=== PATIENT | female | born 1980 | race Caucasian/White ===

== ENCOUNTER → 2018-06-26 | Outpatient (CLI) | payer OTHER ==
[2018-06-26 14:59] LABS: HCT 46.5 % (34.0-46.0); HGB 14.9 gm/dL (11.4-16.0); MCH 31.9 pg (25.0-35.0); MCHC 32.2 g/dL (31.0-37.0); MCV 99.1 fL (80.0-100.0); Mean Platelet Volume 7.4; Platelet Count 232 k/uL (150-450); RBC 4.69 m/uL (3.80-5.40); RDW 12.8 % (11.5-15.5); WBC 9.9 k/uL (3.8-10.6)
[2018-06-26 19:41] LABS: Vitamin D 25 Hydroxy 29.4 ng/mL (30.0-100.0)
[2018-06-26 19:49] LABS: Albumin 4.7 g/dL (3.80-4.90); Albumin/Globulin Ratio 2.47 (1.60-3.17); Anion Gap 11.5 mmol/L (4.00-12.00); Calcium 9.7 mg/dL (8.7-10.3); Carbon Dioxide 25.5 mmol/L (21.6-31.8); Globulin 1.9 g/dL (1.6-3.3); Potassium 4.4 mmol/L (3.5-5.5); Total Bilirubin 0.5 mg/dL (0.2-1.2); Total Protein 6.6 g/dL (6.2-8.2)
[2018-06-26 20:26] LABS: Progesterone 0.8 ng/mL; Thyroid Peroxidase Antibodies <28.0 U/mL (0.0-60.0)
== END | disposition home or self-care (01) ==
LOC: LABWHC1 14:31
PROVIDERS: ATTEND Obstetrics & Gynecology
DX: R53.83 Other fatigue (principal); R63.5 Abnormal weight gain; F32.9 Major depressive disorder, single episode, unspecified; R68.82 Decreased libido; N95.1 Menopausal and female climacteric states
CPT/HCPCS: 36415; 80053; 82306; 82607; 82670; 83001; 84144; 84403; 84439; 84443; 84481; 85027; 86376

== ENCOUNTER → 2018-09-04 | Outpatient (CLI) | payer OTHER ==
[2018-09-04 19:45] LABS: Progesterone 8.7 ng/mL
== END | disposition home or self-care (01) ==
LOC: LABWHC1 12:19
PROVIDERS: ATTEND Obstetrics & Gynecology
DX: N95.1 Menopausal and female climacteric states (principal); R61 Generalized hyperhidrosis; E34.50 Androgen insensitivity syndrome, unspecified; R53.83 Other fatigue
CPT/HCPCS: 36415; 82670; 83001; 84144; 84403

== ENCOUNTER → 2019-07-01 | Outpatient (CLI) | payer BC ==
[2019-07-01 19:19] LABS: Estradiol 58.6 pg/mL; Follicle Stimulating Hormone 15.2 mIU/mL
== END ==
LOC: LABWHC1 13:47
PROVIDERS: ATTEND Orthopaedic Surgery
DX: E55.9 Vitamin D deficiency, unspecified (principal); M25.522 Pain in left elbow; N95.1 Menopausal and female climacteric states; E34.50 Androgen insensitivity syndrome, unspecified; R61 Generalized hyperhidrosis; R53.83 Other fatigue
CPT/HCPCS: 36415; 82306; 82670; 83001; 84144; 84403

== ENCOUNTER → 2019-07-23 | Outpatient (CLI) | payer BC ==
--- NOTE | 2019-07-24 11:20 | MM ---
Reason for exam: screening (asymptomatic). Baseline mammogram. History: Reductions of both breasts, 2010. Taking hormonal contraceptives for 1 year beginning at age 38. Taking progesterone for 1 year beginning at age 38. Physical Findings: Nurse Summary: 0.3cm nodule in the left breast at 10 o'clock (nurse TM). MG 3D Screening Mammo W/Cad Bilateral CC and MLO view(s) were taken. The breast tissue is heterogeneously dense. This may lower the sensitivity of mammography. Benign appearing calcifications in the right breast. There are three grouped sub 5mm masses on the central upper right breast at posterior depth and left central middle posterior depth asymmetry on spot views the right abnormality these persist on the left abnormality persists. These results were verbally communicated with the patient and result sheet given to the patient on 07/23/19. ASSESSMENT: Incomplete: need additional imaging evaluation, BI-RAD 0 RECOMMENDATION: Special view mammogram of both breasts.
--- NOTE | 2019-07-24 11:25 | MM ---
Reason for exam: additional evaluation requested from abnormal screening. History: Reductions of both breasts, 2010. Taking hormonal contraceptives for 1 year beginning at age 38. Taking progesterone for 1 year beginning at age 38. Physical Findings: Breast exam preformed at baseline screening. MG 3D Work Up W/Cad SHERRY Bilateral spot compression CC and LM view(s) were taken. Spot compression MLO view(s) were taken of the right breast. The breast tissue is heterogeneously dense. This may lower the sensitivity of mammography. Bilateral findings on screening persist on additional views. Ultrasound will be performed. These results were verbally communicated with the patient and result sheet given to the patient on 07/23/19. ASSESSMENT: Incomplete: need additional imaging evaluation, BI-RAD 0 RECOMMENDATION: Ultrasound of both breasts.
--- NOTE | 2019-07-24 11:32 | USB ---
Reason for exam: additional evaluation requested from abnormal screening. History: Reductions of both breasts, 2010. Taking hormonal contraceptives for 1 year beginning at age 38. Taking progesterone for 1 year beginning at age 38. US Breast Workup Limited SHERRY Right limited breast ultrasound including focal area of concern, retroareolar and axilla demonstrates a 0.6 x 0.7 x 0.6cm oval, complex, cystic lesion at 10 o'clock, a 0.4 x 0.4 x 0.3cm oval, cystic lesion at 11 o'clock, a 0.6 x 0.6 x 0.2cm oval, cystic lesion at 12 o'clock and a 0.7 x 0.8 x 0.5cm node at the axilla. Left limited breast ultrasound including focal area of concern, retroareolar and axilla demonstrates a 0.4 x 0.5 x 0.3cm cystic lesion at 1 o'clock and a 0.6 x 0.7 x 0.3cm cystic lesion at 1 o'clock, a 0.6 x 0.7 x 0.3cm oval, cystic, complex lesion at 10 o'clock and a 1.0 x 1.0 x 0.9cm axilla node. Dense tissue at 1 o'clock correlates with left mammographic finding. These results were verbally communicated with the patient and result sheet given to the patient on 07/23/19. ASSESSMENT: Benign, BI-RAD 2 RECOMMENDATION: Routine screening mammogram of both breasts in 1 year.
== END | disposition home or self-care (01) ==
LOC: RADMAMWWP 12:46
PROVIDERS: ATTEND Obstetrics & Gynecology
DX: Z12.31 Encounter for screening mammogram for malignant neoplasm of breast (principal); R92.8 Other abnormal and inconclusive findings on diagnostic imaging of breast
CPT/HCPCS: 77062; 77063; 77066; 77067

== ENCOUNTER → 2020-01-19 | Outpatient (CLI) | payer BC ==
--- NOTE | 2020-01-20 06:27 | US ---
EXAMINATION TYPE: US pelvic complete DATE OF EXAM: 01/19/2020 COMPARISON: NONE CLINICAL HISTORY: R10.2 Pelvic Pain. History of ablation 10 years prior. TECHNIQUE: Transabdominal (TA). Date of LMP: 10 years prior EXAM MEASUREMENTS: Uterus: 9.6 x 3.4 x 3.6 cm Endometrial Stripe: 0.7 cm Right Ovary: 1.7 x 0.9 x 1.1 cm Left Ovary: 1.5 x 1.1 x 1.1 cm 1. Uterus: Anteverted wnl 2. Endometrium: wnl 3. Right Ovary: wnl 4. Left Ovary: wnl 5. Bilateral Adnexa: wnl 6. Posterior cul-de-sac: wnl Anteverted uterus. No free fluid. Symmetric small size ovaries. No adnexal masses. IMPRESSION: Unremarkable transabdominal pelvic ultrasound.
== END | disposition home or self-care (01) ==
LOC: RADUSWWP 15:32
PROVIDERS: ATTEND Nurse Practitioner Family
DX: R10.2 Pelvic and perineal pain (principal)
CPT/HCPCS: 76856

== ENCOUNTER → 2020-05-11 | Outpatient (CLI) | payer BC ==
[2020-05-12 06:13] LABS: Estradiol 70.1 pg/mL
[2020-05-12 06:14] LABS: Follicle Stimulating Hormone 13.3 mIU/mL
== END | disposition home or self-care (01) ==
LOC: LABWHC1 15:39
PROVIDERS: ATTEND Obstetrics & Gynecology
DX: N95.1 Menopausal and female climacteric states (principal)
CPT/HCPCS: 36415; 82670; 83001; 84144; 84403

== ENCOUNTER → 2020-08-17 | Outpatient (CLI) | payer BC ==
--- NOTE | 2020-08-18 08:50 | MM ---
Reason for exam: screening (asymptomatic). Last mammogram was performed 1 year and 1 month ago. History: Reductions of both breasts, 2011. Taking hormonal contraceptives for 1 year beginning at age 38. Taking progesterone for 1 year beginning at age 38. Taking other hormone beginning at age 37. Physical Findings: A clinical breast exam by your physician is recommended on an annual basis and results should be correlated with mammographic findings. MG 3D Screening Mammo W/Cad Bilateral CC and MLO view(s) were taken. Prior study comparison: July 23, 2019, bilateral MG 3d work up w/cad SHERRY. July 23, 2019, bilateral MG 3d screening mammo w/cad. The breast tissue is heterogeneously dense. This may lower the sensitivity of mammography. Focal asymmetry central upper right breast. This finding is changed when compared with previous exams. ASSESSMENT: Incomplete: need additional imaging evaluation, BI-RAD 0 RECOMMENDATION: Special view mammogram of the right breast. If lesion persists on supplemental views, image directed ultrasound is recommended. [facility] will attempt to contact patient to return for supplemental views and ultrasound if indicated.
== END | disposition home or self-care (01) ==
LOC: RADMAMWWP 08:58
PROVIDERS: ATTEND Obstetrics & Gynecology
DX: Z12.31 Encounter for screening mammogram for malignant neoplasm of breast (principal)
CPT/HCPCS: 77063; 77067

== ENCOUNTER → 2020-08-26 | Outpatient (CLI) | payer BC ==
--- NOTE | 2020-08-29 10:41 | MM ---
Reason for exam: additional evaluation requested from abnormal screening. Last mammogram was performed less than 1 month ago. History: Reductions of both breasts, 2010. Took hormonal contraceptives for 12 years beginning at age 13. Taking estrogen for 2 years. Taking progesterone for 2 years beginning at age 38. Taking other hormone beginning at age 37. Physical Findings: Nurse Summary: 0.5cm nodule in the left breast at 10 o'clock (nurse db). MG 3D Work Up W/Cad RT Spot compression CC, spot compression MLO, and LM view(s) were taken of the right breast. Prior study comparison: August 17, 2020, bilateral MG 3d screening mammo w/cad. July 23, 2019, bilateral MG 3d work up w/cad SHERRY. The breast tissue is heterogeneously dense. This may lower the sensitivity of mammography. 1cm focal asymmetry 12 o'clock right breast persists. These results were verbally communicated with the patient and result sheet given to the patient on 08/26/20. ASSESSMENT: Incomplete: need additional imaging evaluation, BI-RAD 0 RECOMMENDATION: Ultrasound of both breasts. (right 11-1 o'clock, left 10 o'clock palpable)
--- NOTE | 2020-08-29 10:43 | USB ---
Reason for exam: additional evaluation requested from abnormal screening. History: Reductions of both breasts, 2010. Took hormonal contraceptives for 12 years beginning at age 13. Taking estrogen for 2 years. Taking progesterone for 2 years beginning at age 38. Taking other hormone beginning at age 37. US Breast Workup Limited SHERRY Right limited breast ultrasound including focal area of concern, retroareolar and axilla demonstrates a 0.7 x 0.6 x 0.7cm mixed lesion at 11 o'clock versus 7 x 6 x 6mm previously, largely unchanged, mammographic correlate, 6 month follow up. Left limited breast ultrasound including focal area of concern, retroareolar and axilla demonstrates a 0.9 x 0.4 x 0.8cm cystic lesion at 10 o'clock, superficial, nurse palpated, unchanged, seen previously, benign. These results were verbally communicated with the patient and result sheet given to the patient on 08/26/20. ASSESSMENT: Probably benign, BI-RAD 3 RECOMMENDATION: Follow-up diagnostic mammogram of the right breast in 6 months.
== END | disposition home or self-care (01) ==
LOC: RADMAMWWP 15:01
PROVIDERS: ATTEND Obstetrics & Gynecology
DX: N60.01 Solitary cyst of right breast (principal); N60.02 Solitary cyst of left breast
CPT/HCPCS: 77061; 77065

== ENCOUNTER → 2021-04-07 | Outpatient (CLI) | payer BC ==
--- NOTE | 2021-04-10 09:48 | MM ---
Reason for exam: follow-up at short interval from prior study. Last mammogram was performed 7 months ago. History: Reductions of both breasts, 2011. Took hormonal contraceptives for 12 years beginning at age 13. Taking estrogen for 2 years. Taking progesterone for 2 years beginning at age 38. Taking other hormone beginning at age 37. Physical Findings: Nurse did not find any significant physical abnormalities on exam. MG 3D Diag Mammo W/Cad RT CC and MLO view(s) were taken of the right breast. Prior study comparison: August 26, 2020, right breast MG 3d work up w/cad RT. August 17, 2020, bilateral MG 3d screening mammo w/cad. There are scattered fibroglandular densities. There is chronic nodularity in the right breast. There is no new dominant lesion. Asymmetric breast tissue right breast centrally upper aspect, stable. These results were verbally communicated with the patient and result sheet given to the patient on 04/07/21. ASSESSMENT: Benign, BI-RAD 2 RECOMMENDATION: Return to routine screening mammogram schedule for both breasts. Back on schedule for August 2021.
== END | disposition home or self-care (01) ==
LOC: RADMAMWWP 14:23
PROVIDERS: ATTEND Obstetrics & Gynecology
DX: R92.8 Other abnormal and inconclusive findings on diagnostic imaging of breast (principal)
CPT/HCPCS: 77061; 77065

== ENCOUNTER 2021-10-21 17:18 | Emergency (ER) | payer BC ==
[2021-10-21 17:35] VITALS: TEMP 98.3
[2021-10-21] MEDS ORDERED: LORazepam 0.5 MG TAB PO STA (18:18)
[2021-10-21 18:35] LABS: Basophils # (A) 0.1 k/uL (0-0.2); Basophils % (A) 1 %; Eosinophils # (A) 0.2 k/uL (0-0.7); Eosinophils % (A) 2 %; HCT 48.2 % (34.0-46.0); HGB 15.4 gm/dL (11.4-16.0); Lymphocytes # (A) 1.5 k/uL (1.0-4.8); Lymphocytes % (A) 17 %; MCH 33.1 pg (25.0-35.0); MCV 103.2 fL (80.0-100.0); Macrocytosis Slight; Monocytes # (A) 0.5 k/uL (0-1.0); Monocytes % (A) 6 %; Neutrophils # (A) 6.7 k/uL (1.3-7.7); Neutrophils % (A) 73 %; Platelet Count 202 k/uL (150-450); RBC 4.67 m/uL (3.80-5.40); WBC 9.2 k/uL (3.8-10.6)
[2021-10-21 18:38] LABS: Appearance,Urine Cloudy (Clear); Bacteria,Urine Rare /hpf; Bilirubin,Urine Negative (Negative); Blood,Urine Negative (Negative); Color,Urine Light Red; Glucose,Urine (UA) Negative (Negative); Hyaline Casts,Urine 1 /lpf (0-2); Ketones,Urine Negative (Negative); Leukocyte Esterase,Urine Negative (Negative); Mucus,Urine Many /hpf; Nitrite,Urine Negative (Negative); PH, Urine 6.5 (5.0-8.0); Protein,Urine Trace (Negative); RBC,Urine 1 /hpf (0-5); Specific Gravity,Urine 1.026 (1.001-1.035); Squamous Epithelial Cell,Urine 7 /hpf (0-4); WBC,Urine 2 /hpf (0-5)
[2021-10-21 18:46] LABS: African American GFR (CKD) >90 (>60 ml/min/1.73 sqM); Anion Gap 9 mmol/L; Blood Urea Nitrogen 13 mg/dL (7-17); Calcium 9.7 mg/dL (8.4-10.2); Carbon Dioxide 25 mmol/L (22-30); Chloride 104 mmol/L (98-107); Glucose 120 mg/dL (74-99); Magnesium 1.8 mg/dL (1.6-2.3); Non-African American GFR(CKD) >90 (>60 ml/min/1.73 sqM); Potassium 3.9 mmol/L (3.5-5.1); Sodium 138 mmol/L (137-145)
--- NOTE | 2021-10-21 18:48 | XR ---
EXAMINATION TYPE: XR chest 1V portable DATE OF EXAM: 10/21/2021 COMPARISON: NONE HISTORY: Nausea. Dizziness TECHNIQUE: Single view FINDINGS: Heart and mediastinum are normal. Lungs are clear. Diaphragm is normal. Bony thorax is inta ct. IMPRESSION: Normal chest.
--- NOTE | 2021-10-21 18:58 | ED ---
General Adult HPI - General Chief complaint: Weakness Stated complaint: Weakness,nausea Time Seen by Provider: 10/21/21 18:09 Source: patient, RN notes reviewed, old records reviewed Mode of arrival: ambulatory Limitations: no limitations - History of Present Illness Initial comments: She is a 41-year-old female with past medical history remarkable for anxiety, hypertension and presents emergency Department complaining of becoming shaky suddenly. Patient was at a movie, seeing top gone with her and near the end of the movie some and began feeling nauseous and began getting cold sweats and shaky. Denied any abdominal pain, chest pain, shortness of breath. States she began seeing "sparkles" in her eyes which has since resolved. States she went outside in the movie theater, and sat down. Most of her symptoms resolved except for the mild shakiness. Presents for further evaluation this time. States that her blood pressure was elevated to 150 systolic. States that when she has experienced this in the past, her blood pressure was well. Is compliant with medications. Denies any abdominal pain, nausea, vomiting. Denies any morris ce of being . Denies any weakness, numbness. Was complaining of mild tremors at this time. Denies any alcohol abuse. Denies any drug use. Denies any fevers, chills, sick contacts.Patient denies any recent stressors. States she does not believe she feels anxious. Is concerned regarding her blood pressure. - Related Data Allergies Allergy/AdvReac Type Severity Reaction Status Date / Time levofloxacin [From Levaquin] AdvReac Unknown Verified 10/21/21 17:35 Review of Systems ROS Statement: Those systems with pertinent positive or pertinent negative responses have been documented in the HPI. Review of Systems: CONST: Denies fever EYES: Denies blurry vision ENT: Denies nasal congestion C/V: Denies Chest pain RESP: Denies shortness of breath GI: Denies abdominal pain : Denies dysuria SKIN: Denies rash. MSK: Denies joint pain. NEURO: Denies headache ROS Other: All systems not noted in ROS Statement are negative. Past Medical History Past Medical History: Hypertension History of Any Multi-Drug Resistant Organisms: None Reported Past Surgical History: Section, Cholecystectomy, Orthopedic Surgery Additional Past Surgical History / Comment(s): ACL knee Past Psychological History: Depression Smoking Status: Current every day smoker Past Alcohol Use History: Daily Past Drug Use History: None Reported General Exam - General Exam Comments Initial Comments: General: Appears in no acute distress. HEAD: Normal with no signs of head trauma. EYES: PERRLA, EOMI, conjunctiva normal, no discharge. ENT: Hearing grossly intact, normal oropharynx. RESPIRATORY: Clear breath sounds bilaterally. No wheezes, rales, or rhonchi. C/V: Regular rate and rhythm. S1 and S2 auscultated, no edema, peripheral pulses 2+ and intact throughout ABD: Abd is soft, nontender, nondistended EXT: Normal range of motion, no obvious deformity SKIN: No rashes or lesions observed on exposed skin. NEURO: Alert and oriented x 4. Cranial nerves II-XII intact. No focal sensory or strength deficits. No tremors present. No tongue fasciculations. GCS of 15. Limitations: no limitations Course Vital Signs 10/21/21 10/21/21 17:32 19:13 Temperature 98.3 F Pulse Rate 95 88 Respiratory 16 18 Rate Blood Pressure 157/105 133/98 O2 Sat by Pulse 96 98 Oximetry Medical Decision Making - Medical Decision Making Based on the patient's presentation and physical exam, her symptoms do seem to represent an anxiety episode, however she has no preemptive stressors or triggers that are readily apparent. I did recommend that we obtain a basic workup to rule out any obvious abnormality to this time. Symptoms are improving at this time. She'll be given a dose of Ativan. She has no obvious findings on exam. Vital signs are within normal limits and stable. She is concerned regarding her blood pressure being 157/105. I stated that she is having no symptoms with this blood pressure, and could be due to stress of the current situation as well. We will monitor while she is here in the department. She was in agreement this plan. I did offer her a small dose of oral Ativan which she accepted. Patient stated that she was feeling nauseous earlier which is since resolved. Declines antimanic medications. EKG showed no signs of acute ischemia. Chest x-ray revealed no acute cardiopulmonary process. Laboratory studies were remarkable for a negative test. The remainder of the labs are unremarkable. Urinalysis appears to be a contaminated catch, however shows no obvious findings. On reevaluation, vital signs remained within normal limits. Repeat blood pressure is 133/98. She is feeling slightly improved, and definitely improved since earlier. I discussed the negative workup with her. I do believe it is safer to be discharged home at this time and she is in agreement this plan. She is concerned with her blood pressure, did recommend that she continue to monitor it. She should take it before and after she takes her home blood pressure medications. I'm not concerned for symptomatic hypertension at this time. She was in agreement with this plan. She has Xanax at home to take as needed for anxiety. She is also on bupropion. I recommend that she can states medi cations. Strict return precautions were discussed. I instructed the patient to follow up with their PCP in the next 3 days. I explained that the patient should return to the emergency department if they experience any worsening symptoms. Strict return precautions were discussed with the patient. The patient expressed understanding of these instructions. I answered all questions that the patient had. The patient was discharged home in good condition with their prescriptions and follow up information. - Lab Data Result diagrams: 10/21/21 18:27 10/21/21 18:27 Lab Results 10/21/21 10/21/21 10/21/21 Range/Units 18:27 18:27 18:27 WBC 9.2 (3.8-10.6) k/uL RBC 4.67 (3.80-5.40) m/uL Hgb 15.4 (11.4-16.0) gm/dL Hct 48.2 H (34.0-46.0) % MCV 103.2 H (80.0-100.0) fL MCH 33.1 (25.0-35.0) pg MCHC 32.0 (31.0-37.0) g/dL RDW 12.0 (11.5-15.5) % Plt Count 202 (150-450) k/uL MPV 8.0 Neutrophils % 73 % Lymphocytes % 17 % Monocytes % 6 % Eosinophils % 2 % Basophils % 1 % Neutrophils # 6.7 (1.3-7.7) k/uL Lymphocytes # 1.5 (1.0-4.8) k/uL Monocytes # 0.5 (0-1.0) k/uL Eosinophils # 0.2 (0-0.7) k/uL Basophils # 0.1 (0-0.2) k/uL Macrocytosis Slight Sodium (137-145) mmol/L Potassium (3.5-5.1) mmol/L Chloride (98-107) mmol/L Carbon Dioxide (22-30) mmol/L Anion Gap mmol/L BUN (7-17) mg/dL Creatinine (0.52-1.04) mg/dL Est GFR (CKD-EPI)AfAm (>60 ml/min/1.73 sqM) Est GFR (CKD-EPI)NonAf (>60 ml/min/1.73 sqM) Glucose (74-99) mg/dL Calcium (8.4-10.2) mg/dL Magnesium (1.6-2.3) mg/dL Urine Color Light Red Urine Appearance Cloudy H (Clear) Urine pH 6.5 (5.0-8.0) Ur Specific [place] 1.026 (1.001-1.035) Urine Protein Trace H (Negative) Urine Glucose (UA) Negative (Negative) Urine Ketones Negative (Negative) Urine Blood Negative (Negative) Urine Nitrite Negative (Negative) Urine Bilirubin Negative (Negative) Urine Urobilinogen 2.0 (<2.0) mg/dL Ur Leukocyte Esterase Negative (Negative) Urine RBC 1 (0-5) /hpf Urine WBC 2 (0-5) /hpf Ur Squamous Epith Cells 7 H (0-4) /hpf Urine Bacteria Rare H (None) /hpf Hyaline Casts 1 (0-2) /lpf Urine Mucus Many H (None) /hpf Urine HCG, Qual Not Detected (Not Detectd) 10/21/21 Range/Units 18:27 WBC (3.8-10.6) k/uL RBC (3.80-5.40) m/uL Hgb (11.4-16.0) gm/dL Hct (34.0-46.0) % MCV (80.0-100.0) fL MCH (25.0-35.0) pg MCHC (31.0-37.0) g/dL RDW (11.5-15.5) % Plt Count (150-450) k/uL MPV Neutrophils % % Lymphocytes % % Monocytes % % Eosinophils % % Basophils % % Neutrophils # (1.3-7.7) k/uL Lymphocytes # (1.0-4.8) k/uL Monocytes # (0-1.0) k/uL Eosinophils # (0-0.7) k/uL Basophils # (0-0.2) k/uL Macrocytosis Sodium 138 (137-145) mmol/L Potassium 3.9 (3.5-5.1) mmol/L Chloride 104 (98-107) mmol/L Carbon Dioxide 25 (22-30) mmol/L Anion Gap 9 mmol/L BUN 13 (7-17) mg/dL Creatinine 0.70 (0.52-1.04) mg/dL Est GFR (CKD-EPI)AfAm >90 (>60 ml/min/1.73 sqM) Est GFR (CKD-EPI)NonAf >90 (>60 ml/min/1.73 sqM) Glucose 120 H (74-99) mg/dL Calcium 9.7 (8.4-10.2) mg/dL Magnesium 1.8 (1.6-2.3) mg/dL Urine Color Urine Appearance (Clear) Urine pH (5.0-8.0) Ur Specific [place] (1.001-1.035) Urine Protein (Negative) Urine Glucose (UA) (Negative) Urine Ketones (Negative) Urine Blood (Negative) Urine Nitrite (Negative) Urine Bilirubin (Negative) Urine Urobilinogen (<2.0) mg/dL Ur Leukocyte Esterase (Negative) Urine RBC (0-5) /hpf Urine WBC (0-5) /hpf Ur Squamous Epith Cells (0-4) /hpf Urine Bacteria (None) /hpf Hyaline Casts (0-2) /lpf Urine Mucus (None) /hpf Urine HCG, Qual (Not Detectd) - EKG Data -: EKG Interpreted by Me EKG Comments: 12-lead Electrocardiogram Interpretation Note EKG was reviewed and interpreted by myself. 12-lead ECG performed at 1738 is interpreted by me as revealing normal sinus rhythm at a rate of 95 beats per minute. [place] is normal. AR interval is 150 ms, QRS durations 101 ms, QTc is 421 ms.. There were no ST or T wave abnormalities to suggest myocardial ischemia or injury. R wave progression across the precordium was satisfactory. By my interpretation this EKG is non-diagnostic for acute ischemia. Disposition Clinical Impression: Nausea Disposition: HOME SELF-CARE Condition: Good Instructions (If sedation given, give patient instructions): Acute Nausea and Vomiting (DC), Anxiety (ED) Is patient prescribed a controlled substance at d/c from ED?: No Referrals: Elen Vu MD [Primary Care Provider] - 1-2 days Time of Disposition: 19:00
[2021-10-21 19:14] VITALS: BP 133/98; PULSE 88; RESP 18
== END 2021-10-21 19:10 | disposition home or self-care (01) ==
LOC: EC 17:18
DX: R11.0 Nausea (principal); R53.1 Weakness; R25.1 Tremor, unspecified; I10 Essential (primary) hypertension; F17.200 Nicotine dependence, unspecified, uncomplicated; Z88.1 Allergy status to other antibiotic agents
CPT/HCPCS: 36415; 71045; 80048; 81001; 81025; 83735; 85025; 93005; 99285

== ENCOUNTER → 2022-03-15 | Outpatient (CLI) | payer BC ==
[2022-03-16 00:15] LABS: Follicle Stimulating Hormone 42.6 mIU/mL
== END | disposition home or self-care (01) ==
LOC: LABWHC1 15:46
PROVIDERS: ATTEND Obstetrics & Gynecology
DX: N95.1 Menopausal and female climacteric states (principal); E34.50 Androgen insensitivity syndrome, unspecified; R53.83 Other fatigue
CPT/HCPCS: 36415; 82672; 83001; 84144; 84403

== ENCOUNTER → 2023-03-29 | Outpatient (CLI) | payer BC ==
--- NOTE | 2023-04-01 08:28 | MM ---
Reason for Exam: Screening (asymptomatic). Last mammogram was performed 1 year(s) and 3 month(s) ago. Patient History: Menarche at age 11. First Full-Term at age 27. Premenopausal. Patient has history of breast feeding. Currently using Estrogen, for 2 years. Currently using Progesterone, beginning at age 38 for 2 years. Hormonal Contraceptives for 12 years from age 13 until age 25. 2011, Bilateral Reduction. Risk Values: Zainab 5 year model risk: 0.8%. NCI Lifetime model risk: 11.9%. Prior Study Comparison: 07/23/2019 Bilateral Screening Mammogram, [facility]. 07/23/2019 Bilateral Diagnostic Mammogram, [facility]. 08/17/2020 Bilateral Screening Mammogram, [facility]. 08/26/2020 Right Diagnostic Mammogram, [facility]. 04/07/2021 Right Diagnostic Mammogram, [facility]. 01/03/2022 Bilateral MG 3D screening mammo w/cad, [facility]. Tissue Density: The breast tissue is heterogeneously dense. This may lower the sensitivity of mammography. Findings: Analyzed By CAD. Increasing microcalcifications in her upper left breast 4 cm from the nipple. Additional views are recommended including spot magnification compression views. Benign calcified age in the right breast. No evidence for mass or distortion. Overall Assessment: Incomplete: need additional imaging evaluation, BI-RAD 0 Management: Diagnostic Mammogram of the left breast. . Patient should continue monthly self-breast exams. A clinical breast exam by your physician is recommended on an annual basis. This exam should not preclude additional follow-up of suspicious palpable abnormalities. Note on Zainab scores and lifetime risk: 1. A Zainab score greater than 3% is considered moderate risk. If this is the case, consider specialist referral to assess eligibility for a risk reducing agent. 2. If overall lifetime risk for the development of breast cancer is 20% or higher, the patient may qualify for future screening with alternating mammogram and breast MRI. Electronically signed and approved by: Sai Lau M.D. Radiologis
== END | disposition home or self-care (01) ==
LOC: RADMAMWWP 10:23
PROVIDERS: ATTEND Obstetrics & Gynecology
DX: Z12.31 Encounter for screening mammogram for malignant neoplasm of breast (principal)
CPT/HCPCS: 77063; 77067

== ENCOUNTER → 2023-04-17 | Outpatient (CLI) | payer BC ==
--- NOTE | 2023-04-23 14:56 | MM ---
Reason for Exam: Additional evaluation requested from abnormal screening. Last screening mammogram was performed less than 1 month ago. Patient History: Menarche at age 11. First Full-Term at age 27. Premenopausal. Patient has history of breast feeding. Currently using Estrogen, for 2 years. Currently using Progesterone, beginning at age 38 for 2 years. Hormonal Contraceptives for 12 years from age 13 until age 25. 2011, Bilateral Reduction. Risk Values: Zainab 5 year model risk: 0.8%. NCI Lifetime model risk: 11.9%. Prior Study Comparison: 04/07/2021 Right Diagnostic Mammogram, [facility]. 01/03/2022 Bilateral MG 3D screening mammo w/cad, [facility]. 03/29/2023 Bilateral MG 3D screening mammo w/cad, [facility]. Tissue Density: Left: There are scattered fibroglandular densities. Findings: Analyzed By CAD. The calcifications appear to be very superficial within the upper inner anterior left breast. Short-term follow-up can be performed. Overall Assessment: Probably benign, BI-RAD 3 Management: Diagnostic Mammogram of the left breast in 6 months. A negative mammogram report should not preclude additional follow up of suspicious palpable abnormalities. Patient should continue monthly self breast exam. A clinical breast exam by your physician is recommended on an annual basis and results should be correlated with mammographic findings. Electronically signed and approved by: Stanford Solitario D.O. Radiologis
== END | disposition home or self-care (01) ==
LOC: RADMAMWWP 10:56
PROVIDERS: ATTEND Obstetrics & Gynecology
DX: R92.322 Mammographic fibroglandular density, left breast (principal)
CPT/HCPCS: 77061; 77065

== ENCOUNTER → 2023-12-02 | Outpatient (CLI) | payer BC ==
--- NOTE | 2023-12-02 14:57 | MM ---
Reason for Exam: Follow-up at short interval from prior study. Last screening mammogram was performed 8 month(s) ago. Patient History: Menarche at age 11. First Full-Term at age 27. Premenopausal. Patient has history of breast feeding. Currently using Estrogen, for 2 years. Currently using Progesterone, beginning at age 38 for 2 years. Hormonal Contraceptives for 12 years from age 13 until age 25. 2011, Bilateral Reduction. Risk Values: Zainab 5 year model risk: 0.9%. NCI Lifetime model risk: 11.8%. Prior Study Comparison: 01/03/2022 Bilateral MG 3D screening mammo w/cad, [facility]. 03/29/2023 Bilateral MG 3D screening mammo w/cad, [facility]. 04/17/2023 Left MG 3D work up w/cad , [facility]. Tissue Density: Left: There are scattered areas of fibroglandular density. Findings: Analyzed By CAD. Changes of previous reduction mammoplasty. Superficial calcifications persists left breast which may be postoperative in nature. No progression calcifications seen. Continued follow-up advised. Overall Assessment: Probably benign, BI-RAD 3 Management: Diagnostic Mammogram of both breasts in 6 months. . Results were given to the patient verbally at the time of exam. Patient should continue monthly self-breast exams. A clinical breast exam by your physician is recommended on an annual basis. This exam should not preclude additional follow-up of suspicious palpable abnormalities. Note on Zainab scores and lifetime risk: 1. A Zainab score greater than 3% is considered moderate risk. If this is the case, consider specialist referral to assess eligibility for a risk reducing agent. 2. If overall lifetime risk for the development of breast cancer is 20% or higher, the patient may qualify for future screening with alternating mammogram and breast MRI. Electronically signed and approved by: Sai Lau M.D. Radiologis
== END | disposition home or self-care (01) ==
LOC: RADMAMWWP 14:34
PROVIDERS: ATTEND Family Medicine
DX: R92.8 Other abnormal and inconclusive findings on diagnostic imaging of breast (principal); R92.322 Mammographic fibroglandular density, left breast
CPT/HCPCS: 77061; 77065

== ENCOUNTER → 2023-12-02 | Outpatient (CLI) | payer BC ==
[2023-12-02 18:30] LABS: Basophils # (A) 0.06 X 10*3/uL (0.00-0.10); Basophils % (A) 0.7 %; Eosinophils # (A) 0.07 X 10*3/uL (0.04-0.35); Eosinophils % (A) 0.8 %; HGB 15.2 g/dL (12.0-15.0); Lymphocytes # (A) 1.56 X 10*3/uL (0.90-5.00); Lymphocytes % (A) 18.6 %; MCH 32.9 pg (27.0-32.0); MCV 99.6 FL (80.0-97.0); Mean Platelet Volume 10.5 FL (9.5-12.2); Monocytes # (A) 0.67 X 10*3/uL (0.20-1.00); NRBC Per 100 WBC 0 X 10*3/uL (0.00-0.01); Neutrophils % (A) 71.7 %; Platelet Count 268 X 10*3/uL (140-440); RBC 4.62 X 10*6/uL (4.10-5.20); RDW 12.4 % (11.5-14.5); WBC 8.38 X 10*3/uL (4.50-10.00)
[2023-12-02 19:21] LABS: Hepatitis B Surface Antigen Nonreactive (Nonreactive)
[2023-12-02 19:22] LABS: % Iron Saturation 31.59 (12.00-45.00); ALT 96 U/L (8-44); AST 90 U/L (13-35); Albumin 4.6 g/dL (3.8-4.9); Albumin/Globulin Ratio 1.64 Ratio (1.60-3.17); Alkaline Phosphatase 115 U/L (41-126); Calcium 10.1 mg/dL (8.7-10.3); Carbon Dioxide 22.7 mmol/L (21.6-31.8); Chloride 102 mmol/L (96-109); Globulin 2.8 g/dL (1.6-3.3); Glucose 101 mg/dL (70-110); Iron 139 UG/DL (50-170); Potassium 4.8 mmol/L (3.5-5.5); Sodium 139 mmol/L (135-145); Total Bilirubin 0.4 mg/dL (0.3-1.2); Total Iron Binding Capacity 440 UG/DL (228-460); Total Protein 7.4 g/dL (6.2-8.2)
[2023-12-03 11:46] LABS: Smooth Muscle Antibody 4 UNITS (<20)
== END | disposition home or self-care (01) ==
LOC: LABWHC1 14:57
PROVIDERS: ATTEND Nurse Practitioner Family
DX: R74.01 Elevation of levels of liver transaminase levels (principal)
CPT/HCPCS: 36415; 80053; 81596; 82103; 82390; 82728; 83516; 83540; 83550; 84165; 85025; 86038; 87340